=== PATIENT | male | born 1940 | race Caucasian/White ===

== ENCOUNTER 2020-04-25 08:25 | Emergency (ER) | payer MEDICARE, BC ==
[2020-04-25] MEDS ORDERED: Aspirin 81 MG Tab.Chew PO ONE (08:49)
[2020-04-25] MEDS ORDERED: Sodium Chloride 0.9% 10 ML Syringe FLUSH PRN (08:49)
[2020-04-25] MEDS ORDERED: Nitroglycerin 0.4 MG Tab.SL SL PRN (08:49)
--- NOTE | 2020-04-25 08:53 | EDM.PDOC ---
ED HPI GENERAL MEDICAL PROBLEM - General Chief Complaint: Cardiovascular Problem Stated Complaint: HIGH BP Time Seen by Provider: 04/25/20 08:44 Source of Information: Reports: Patient, Family, RN Notes Reviewed History Limitations: Reports: No Limitations - History of Present Illness INITIAL COMMENTS - FREE TEXT/NARRATIVE: 79-year-old gentleman presents emergency department a complaint of elevated blood pressure and chest discomfort, he is visiting from [facility] was evaluated by his primary care yesterday did have some elevated blood pressure in the clinic systolics around 150 he does take 2 blood pressure medications of hydrochlorothiazide and propanolol. He checked his blood pressure at home this morning found the systolic was greater than 200 he also describes some chest discomfort left anterior chest no radiation down the arm or up the neck no shortness of breath no diaphoresis. No cardiac history no tobacco use history - Related Data Allergies Allergy/AdvReac Type Severity Reaction Status Date / Time Sulfa (Sulfonamide AdvReac Rash Verified 04/25/20 08:54 Antibiotics) Home Meds: Home Meds Abiraterone Acetate [Zytiga] 1,000 mg PO DAILY 04/25/20 [History] Calcium Carb, Citrate/Vit D3 [Calcium + D3 ER Tablet] 1 tab PO DAILY 04/25/20 [History] Calcium Carbonate [Calcium] 800 mg PO DAILY 04/25/20 [History] Doxycycline [Vibramycin] 50 mg PO DAILY 04/25/20 [History] Mesalamine [Lialda] 2.4 gm PO DAILY 04/25/20 [History] Multivitamin [Multivitamins] 1 tab PO DAILY 04/25/20 [History] Propranolol [Inderal] 20 mg PO BEDTIME 04/25/20 [History] Simvastatin 10 mg PO DAILY 04/25/20 [History] hydroCHLOROthiazide [Hydrochlorothiazide] 25 mg PO DAILY 04/25/20 [History] predniSONE [Prednisone] 5 mg PO BID 04/25/20 [History] Past Medical History Cardiovascular History: Reports: High Cholesterol, Hypertension Oncologic (Cancer) History: Reports: Prostate Social & Family History - Tobacco Use Smoking Status *Q: Never Smoker ED ROS GENERAL - Review of Systems Review Of Systems: See Below Constitutional: Reports: No Symptoms HEENT: Reports: No Symptoms Respiratory: Reports: No Symptoms Cardiovascular: Reports: Chest Pain GI/Abdominal: Reports: No Symptoms : Reports: No Symptoms Musculoskeletal: Reports: No Symptoms ED EXAM, GENERAL - Physical Exam Exam: See Below Exam Limited By: No Limitations General Appearance: Alert, WD/WN, No Apparent Distress Head: Atraumatic, Normocephalic Neck: Normal Inspection, Supple, Non-Tender, Full Range of Motion Respiratory/Chest: No Respiratory Distress, Lungs Clear, Normal Breath Sounds, No Accessory Muscle Use, Chest Non-Tender Cardiovascular: Regular Rate, Rhythm, No Murmur GI/Abdominal: Soft, Non-Tender Extremities: Normal Inspection, Normal Range of Motion, Non-Tender, No Pedal Edema Course - Vital Signs Last Recorded V/S: Last Vital Signs Temp 97.6 F 04/25/20 09:06 Pulse 62 04/25/20 09:06 Resp 12 04/25/20 09:06 BP 165/104 H 04/25/20 09:10 Pulse Ox 98 04/25/20 09:06 - Orders/Labs/Meds Orders: Active Orders 24 hr Category Date Time Status Cardiac Monitoring [RC] .As Directed Care 04/25/20 08:50 Active EKG Documentation Completion [RC] ASDIRECTED Care 04/25/20 08:51 Active Peripheral IV Care [RC] . DIRECTED Care 04/25/20 08:51 Active Nitroglycerin [Nitrostat] Med 04/25/20 08:49 Active 0.4 mg SL Q5M PRN Sodium Chloride 0.9% [Saline Flush] Med 04/25/20 08:49 Active 10 ml FLUSH ASDIRECTED PRN Peripheral IV Insertion Adult [OM.PC] Stat Oth 04/25/20 08:49 Ordered Saline Lock Insert [OM.PC] Stat Oth 04/25/20 08:49 Ordered EKG 12 Lead [EK] Stat Ther 04/25/20 08:51 Ordered Medication Orders Nitroglycerin (Nitrostat) 0.4 mg SL Q5M PRN PRN Reason: Chest Pain Stop: 04/26/20 08:50 Last Admin: 04/25/20 08:56 Dose: 0.4 mg Documented by: JASON Sodium Chloride (Saline Flush) 10 ml FLUSH ASDIRECTED PRN PRN Reason: Keep Vein Open Last Admin: 04/25/20 09:14 Dose: 10 ml Documented by: JASON Labs: Laboratory Tests 04/25/20 04/25/20 Range/Units 08:45 08:45 WBC 2.9 L (4.5-11.0) K/uL RBC 4.14 L (4.30-5.90) M/uL Hgb 13.7 (12.0-15.0) g/dL Hct 40.7 (40.0-54.0) % MCV 98 (80-98) fL MCH 33 H (27-31) pg MCHC 34 (32-36) % Plt Count 184 (150-400) K/uL Neut % (Auto) 53 (36-66) % Lymph % (Auto) 19 L (24-44) % Lewis % (Auto) 26 H (2-6) % Eos % (Auto) 1 L (2-4) % Baso % (Auto) 1 (0-1) % Sodium 137 L (140-148) mmol/L Potassium 3.3 L (3.6-5.2) mmol/L Chloride 99 L (100-108) mmol/L Carbon Dioxide 31 (21-32) mmol/L Anion Gap 10.3 (5.0-14.0) mmol/L BUN 16 (7-18) mg/dL Creatinine 0.9 (0.8-1.3) mg/dL Est Cr Clr Drug Dosing 74.72 mL/min Estimated GFR (MDRD) > 60 (>60) Glucose 89 (74-106) mg/dL Calcium 9.3 (8.5-10.1) mg/dL Total Bilirubin 1.0 (0.2-1.0) mg/dL AST 38 H (15-37) U/L ALT 43 (12-78) U/L Alkaline Phosphatase 50 (46-116) U/L Troponin I < 0.017 (0.000-0.056) ng/mL Total Protein 6.9 (6.4-8.2) g/dL Albumin 4.0 (3.4-5.0) g/dL Globulin 2.9 (2.3-3.5) g/dL Albumin/Globulin Ratio 1.4 (1.2-2.2) Meds: Medications Generic Name Dose Route Start Last Admin Trade Name Freq PRN Reason Stop Dose Admin Nitroglycerin 0.4 mg 04/25/20 08:49 04/25/20 08:56 Nitrostat SL 04/26/20 08:50 0.4 mg Q5M PRN Administration Chest Pain Sodium Chloride 10 ml 04/25/20 08:49 04/25/20 09:14 Saline Flush FLUSH 10 ml ASDIRECTED PRN Administration Keep Vein Open Discontinued Medications Generic Name Dose Route Start Last Admin Trade Name Francisco PRN Reason Stop Dose Admin Aspirin 324 mg 04/25/20 08:49 04/25/20 08:56 Aspirin PO 04/25/20 08:50 324 mg ONETIME ONE Administration Departure - Departure Time of Disposition: 09:30 Disposition: Home, Self-Care 01 Condition: Fair Clinical Impression: Hypertensive urgency Instructions: Hypertension, Adult, [id number] Referrals: PCP,None [Primary Care Provider] - Forms: ED Department Discharge Additional Instructions: Recommend returning to your regular scheduling of your home medications, recommend starting a blood pressure journal with blood pressures taken at random times throughout the day no more than 1 blood pressure per day, please contact your primary care next week with your blood pressure readings for further evaluation, call or return to the emergency department worsening of symptoms Sepsis Event Note (ED) - Focused Exam Vital Signs: Vital Signs Temp Pulse Resp BP BP Pulse Ox 04/25/20 09:10 165/104 H 04/25/20 09:07 169/103 H 04/25/20 09:06 97.6 F 62 12 179/95 H 98 04/25/20 08:57 179/95 H 04/25/20 08:56 179/95 H 04/25/20 08:34 97.6 F 62 12 194/114 H 98 - My Orders Last 24 Hours: My Active Orders 04/25/20 08:49 Nitroglycerin [Nitrostat] 0.4 mg SL Q5M PRN Sodium Chloride 0.9% [Saline Flush] 10 ml FLUSH ASDIRECTED PRN Peripheral IV Insertion Adult [OM.PC] Stat Saline Lock Insert [OM.PC] Stat 04/25/20 08:50 Cardiac Monitoring [RC] .As Directed 04/25/20 08:51 EKG Documentation Completion [RC] ASDIRECTED Peripheral IV Care [RC] . DIRECTED EKG 12 Lead [EK] Stat - Assessment/Plan Last 24 Hours: My Active Orders 04/25/20 08:49 Nitroglycerin [Nitrostat] 0.4 mg SL Q5M PRN Sodium Chloride 0.9% [Saline Flush] 10 ml FLUSH ASDIRECTED PRN Peripheral IV Insertion Adult [OM.PC] Stat Saline Lock Insert [OM.PC] Stat 04/25/20 08:50 Cardiac Monitoring [RC] .As Directed 04/25/20 08:51 EKG Documentation Completion [RC] ASDIRECTED Peripheral IV Care [RC] . DIRECTED EKG 12 Lead [EK] Stat Plan: Assessment Acuity = acute Site and laterality = hypertensive urgency Etiology = unknown possibly related to change in the way his medications are taken Manifestations = none Location of injury = Home Lab values = WBC low at 2.9 consistent with leukopenia potassium low at 3.2 consistent with hypokalemia sodium low at 137 consistent hyponatremia troponin is negative EKG demonstrates a right bundle branch block no signs of ST elevation or depressions however no other EKGs are available Plan He denies any chest discomfort he states he feels much better with the lower blood pressure and is not as anxious, plan is to change his blood pressure medication to his normal time in the afternoon rather than taking it in the evening he will do a blood pressure journal and contact his primary care next week for further evaluation This note was dictated using [employer] voice recognition software please call with any questions on syntax or grammar.
== END 2020-04-25 09:39 | disposition home or self-care (01) ==
LOC: JP.ED 08:25
DX: I16.0 Hypertensive urgency (principal); I10 Essential (primary) hypertension; E78.00 Pure hypercholesterolemia, unspecified; Z88.2 Allergy status to sulfonamides; Z79.899 Other long term (current) drug therapy
CPT/HCPCS: 36415; 80053; 84484; 85025; 93005; 99283; A9270